=== PATIENT | female | born 1960 | race Caucasian/White ===

== ENCOUNTER → 2017-03-11 | Outpatient (CLI) | payer BC | END | disposition home or self-care (01) | LOC: C.PAPS 09:40 | PROVIDERS: ATTEND Obstetrics & Gynecology | DX: Z01.419 Encounter for gynecological examination (general) (routine) without abnormal findings (principal) ==

== ENCOUNTER 2024-05-21 05:02 | Observation (INO) ==
--- NOTE | 2024-02-08 10:18 | PAT Medication Instructions ---
Medication Instructions Date of Service February 08, 2024 Home Medications dorzolamide 22.3 mg-timolol 6.8 mg/mL eye drops (Cosopt) 1 drp ophthalmic (eye) BID amlodipine 5 mg tablet 5 mg PO HS aspirin 81 mg capsule 81 mg PO HS cholecalciferol (vitamin D3) 125 mcg (5,000 unit) tablet (Vitamin D3) 125 mcg PO HS doxycycline hyclate 50 mg capsule 50 mg PO HS irbesartan 150 mg tablet 150 mg PO HS multivitamin 1 tab PO HS ASK your prescriber and surgeon aspirin 81 mg capsule 81 mg PO HS Take morning of surgery With a small sip of water, OTHERWISE NOTHING TO EAT OR DRINK AFTER MIDNIGHT: dorzolamide 22.3 mg-timolol 6.8 mg/mL eye drops (Cosopt) 1 drp ophthalmic (eye) BID Take evening before surgery dorzolamide 22.3 mg-timolol 6.8 mg/mL eye drops (Cosopt) 1 drp ophthalmic (eye) BID amlodipine 5 mg tablet 5 mg PO HS cholecalciferol (vitamin D3) 125 mcg (5,000 unit) tablet (Vitamin D3) 125 mcg PO HS doxycycline hyclate 50 mg capsule 50 mg PO HS irbesartan 150 mg tablet 150 mg PO HS multivitamin 1 tab PO HS Other Notes If you have any questions please call us at [phone] or [phone] or [phone] or [phone]
--- NOTE | 2024-05-03 10:24 | Anesthesiology Consultation ---
Date of Service May 03, 2024 Assessment & Plan (1) Encounter for pre-operative examination: - Infectious disease screening: Per assessment on 05/03/24- No known recent infectious disease contacts or current infectious disease symptoms. - Outpatient joint assessment: Pt currently scheduled for inpatient pathway. If surgeon requests review for outpatient joint pathway, patient is an acceptable candidate for outpatient joint program from anesthesia standpoint pending PCP visit, surgeon's office assessment that patient is motivated, has good support and completes Same Day Joint Program preop requirements. - Patient acceptable risk for surgery pending recent PCP office visit note (MANINDER, appt 05/04- currently in draft). Chart Review Chart Review: Patient seen in Pre Admission Testing Teaching & Discussion Pre-Anesthesia Teaching/Discussion Notes: Instructed NPO after midnight before surgery,except medications with 15 cc of water. Medication instructions provided according to the PAT guidelines. History Surgery Operation Date: 05/21/24 09:00 Proposed Procedures p Left Total Knee Arthroplasty - Mark Rodriguez, Height/Weight Height: 5 ft 6 in Weight: 96.2 kg Allergies Allergy/AdvReac Type Severity Reaction Status Date / Time adhesive Allergy Severe Hives, Verified 04/27/24 10:15 itchy clarithromycin Allergy Unknown Vertigo, Verified 04/27/24 10:15 N/V ondansetron [From Zofran] Allergy Unknown Per Verified 04/27/24 10:15 records, unknown reaction prednisone Allergy Unknown Nausea Verified 04/27/24 10:15 Medications Home Medications Medication Instructions Recorded Confirmed Last Taken dorzolamide 22.3 mg-timolol 6.8 1 drp ophthalmic (eye) BID 07/02/20 04/27/24 Unknown mg/mL eye drops (Cosopt) amlodipine 5 mg tablet 5 mg PO HS 10/07/22 04/27/24 Unknown cholecalciferol (vitamin D3) 125 125 mcg PO HS 02/06/24 04/27/24 Unknown mcg (5,000 unit) tablet (Vitamin D3) irbesartan 150 mg tablet 150 mg PO HS 02/06/24 04/27/24 Unknown multivitamin 1 tab PO HS 02/06/24 04/27/24 Unknown Entocort EC DIRECTED 05/03/24 Unknown Past Medical History Medical History History of COVID-19 03/2023- treated with Paxlovid, no residual symptoms Hx of pleurisy 2008, no current issues Hypertension Osteoarthritis of left knee 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 No further cha luation necessary." Exercise / Class Metabolic Activity II 4-5 Yardwork/Stairs/Walk up hill (one FS (No CP, no SOB)) Past Family History Family History Other Cancer Coronary heart disease Diabetes Past Surgical History Surgical History H/O dilation and curettage Multiple (R/t miscarriages) H/O sinus surgery Hx of breast surgery Milk ducts surgery Hx of colonoscopy Hx of tooth extraction Age 13, teeth removed for placement of braces Hx of wisdom tooth extraction S/P myringotomy with insertion of tube B/L Past Anesthesia History No Hx of Anesthesia Complications * Mother: Grogginess, nausea post-op History of PONV No Hx of PONV and Hx of Motion Sickness Social History Smoking Status: Never smoker Do You Dip or Chew Tobacco: No Hx Alcohol Use: Yes (very rare) Hx Substance Use: No substance use type: does not use Review of Systems Patient denies chest pain, shortness of breath, dyspnea on exertion, fever, chills, cough, wheezing, palpitations. Physical Exam Vital Signs BP 127/85 P 82 TEMP 97.9 SP02 97%RA RESP 16 Physical Full cervical extension range of motion. Full TMJ range of motion. TMD > 3.5 finger breaths Mallampati Score II Dentition: intact Lungs: clear throughout to auscultation Cardiac: regular rate and rhythm, no murmurs noted Spine: normal Carotid arteries: negative bruit Extremities: no LE edema Lab Results Anesthesia Preop Results Results Anesthesia Widget: WBC 7.91 K/ul (4.8-10.8) 05/03/24 Hgb 13.9 g/dl (12.0-16.0) 05/03/24 Hct 41.1 % (37.0-47.0) 05/03/24 Plt 265 K/uL (130-400) 05/03/24 Na 139 mmol/L (136-145) 05/03/24 K 3.4 mmol/L (3.5-5.1) L 05/03/24 Cl 106 mmol/L (98-107) 05/03/24 CO2 27 mmol/L (21-32) 05/03/24 BUN 14 mg/dl (6-23) 05/03/24 Creat 0.69 mg/dl (0.6-1.2) 05/03/24 Glucose Level 110 mg/dl (70-99(Fasting)) H 05/03/24 PT 10.3 Seconds (9.0-12.0) 05/03/24 PTT 27 Seconds (21-31) 05/03/24 INR 0.9 (0.9-1.1) 05/03/24 Blood Type A Positive 05/03/24 Antibody Screen NEGATIVE 05/03/24 Testing Electrocardiogram Date: 05/03/24 NSR at 81bpm. LAD. Low voltage QRS. Chest X-Ray Date: 05/03/24 FINDINGS: The lungs are clear. Cardiomediastinal silhouette is within normal limits. No acute osseous abnormalities. No pleural effusion or pneumothorax. IMPRESSION: No acute cardiopulmonary findings. Other Testing CT Cardiac calcium score Date: 03/15/24 There is no coronary artery calcification. The Agatston score is 0. Anterior mediastinal soft tissue density may reflect a thymic cyst or similar benign thymic lesion. Thymic neoplasm not excluded. Further assessment with thymic protocol MRI advised. 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 No further evaluation necessary.
[~2024-05-21 05:02] MED LIST: ceFAZolin 2000MG 2,000 MG/15 ML SYR IV SCH
--- NOTE | 2024-05-21 05:54 | History & Physical Bridge Note ---
Date of Service May 21, 2024 History & Physical Bridge Note I have examined the patient, reviewed the History & Physical and in the interval since the performance of the History & Physical I have noted the following changes of clinical significance: no changes noted
[2024-05-21] MEDS: FAMOTIDINE 20 MG TAB PO SCH (05:57)
[2024-05-21] MEDS: GABAPENTIN 600 MG DOSE PO SCH (05:57)
[2024-05-21] MEDS: ACETAMINOPHEN 500 MG TAB PO SCH ×2 (05:57→15:11)
[2024-05-21] MEDS: LR 500ML BOLUS, THEN 15ML/HR IV SCH (05:58)
[2024-05-21] MEDS: LR 60ML/HR IV SCH (05:58)
[2024-05-21] MEDS: SODIUM CHLORIDE 0.9% 1,000 ML IV SCH (05:59)
[2024-05-21] MEDS: dexAMETHasone**PF** 10 MG/ML VIAL IV SCH (06:09)
[2024-05-21] MEDS ORDERED: ROPIVACAINE 0.5% 5 MG/ML 30 ML VIAL ONE (06:21)
[2024-05-21] MEDS ORDERED: MIDAZOLAM HCL 1 MG/ML 2ML VIAL ONE (06:39)
[2024-05-21] MEDS: TRANEXAMIC ACID 1,000 MG **IV Pre-op IV SCH (06:41)
[2024-05-21] MEDS ORDERED: ATROPINE SULFATE 0.1 MG/ML 10ML SYR IV PRN (06:42)
[2024-05-21] MEDS ORDERED: KETOROLAC 30 MG/ML VIAL IV PRN (06:42)
[2024-05-21] MEDS ORDERED: ePHEDrine sulfate 50 MG/ML AMP IV PRN (06:42)
[2024-05-21] MEDS ORDERED: PROMETHAZINE HCL 6.25 MG in SODIUM CHLORIDE 0.9% 50 ML IV PRN (06:42)
[2024-05-21] MEDS ORDERED: HYDROmorphone INJ 1 MG/ML SYRINGE IV PRN (06:42)
[2024-05-21] MEDS ORDERED: PROPOFOL IV EMULSION 10 MG/ML 20 ML VIAL IV ONE ×2 (06:44→07:48)
[2024-05-21] MEDS: ceFAZolin 2000MG 2,000 MG/15 ML SYR IV SCH ×2 (06:59→15:11)
[2024-05-21] MEDS ORDERED: ONDANSETRON INJ 2 MG/ML 2 ML VIAL ONE (07:09)
[2024-05-21] MEDS: ORTHO JOINT ANESTHETIC ONE (07:41)
[2024-05-21] MEDS: ROPIV 0.5% 246mg, Ketorolac 30mg, EPINEPHrine 0.5mg in NSS INFIL SCH (07:55)
[2024-05-21] MEDS: TRANEXAMIC ACID 1,000 MG **IV Intra-op IV SCH (08:12)
--- NOTE | 2024-05-21 08:14 | Operative Report ---
PG Post Operative Report Pre & Post Diagnosis Operation Date: 05/21/24 07:00 Pre-Op Diagnosis: Osteoarthritis of Left Knee Post-Op Diagnosis: Osteoarthritis of Left Knee I identified the patient and participated in the time-out.: Yes Procedure Operation Date: 05/21/24 07:00 Actual Procedures p Left Total Knee Arthroplasty(Left) - Mark Rodriguez DO Surgeon Mark Rodriguez DO Helper Coordinator Sana Pinto PA-C Estimated Blood Loss 30 Findings Consistent with Post-Op Diagnosis Specimens Left femoral tibial bone Description of Procedure Implants used: I used a Anya Persona total knee arthroplasty system with a size 7 PS standard femur, E tibia, 28 oval patella, and a size 14 CPS polyethylene bearing. All components were cemented in place with Biomet cement. Nona arrived [facility] for the above procedure. She was seen in the preoperative holding area and the operative extremity was identified and signed. She was given a preoperative antibiotic, TXA, a spinal anesthetic and an adductor nerve block. She was taken back to the operating room and laid on the table in supine position. She was given basic sedation. The operative knee was then prepped and draped in sterile fashion. A timeout was done, and the patient and the operative extremity was properly identified. A midline incision was made directly over the patella. Dissection was taken down to the extensor mechanism. A medial parapatellar arthrotomy was used. The medial retinaculum was released and the fat pad was mostly excised. The knee was flexed and the ACL, PCL, and meniscus were removed. A drill was sent down the center of the femoral canal followed by an intramedullary tang. Off that tang a distal femoral cutting block was placed. 9 mm was resected off the distal femur at 5 of valgus. A posterior referencing AP sizing guide was then placed on the distal femur. The femur measured to be a size 7. 2 drill holes were placed in 3 of external rotation. A 4-in-1 cutting block was then impacted into place. Anterior, posterior, and chamfer cuts were then made. The proximal tibia was then exposed. An external tibial alignment guide was placed. A tibial cut guide was then anchored in place and the proximal tibia was then resected. The posterior aspect of the knee was then opened up and any additional meniscus fragments and osteophytes were removed. The tibia measured to be a size E. The tibial plate was then placed in the appropriate rotation and the tibia was drilled and punched. Trial components were then placed. I used a size 14 CPS polyethylene insert. The knee was brought through a full range of motion and felt to be stable. The peg holes for the femoral component were then drilled. The patella was then everted and 9 mm was resected off the posterior aspect of the patella. The patella measured to be a size 28 oval. 3 peg holes were then drilled. A trial patella was placed. The knee was once again brought through a full range of motion and felt to be stable. Trial components were then removed. The surrounding soft tissues were injected with 100 cc of an orthopedic pain control cocktail. All components were then cemented into place with Biomet cement. The final polyethylene insert was then snapped into place. Once cement was dry the tourniquet was deflated. Hemostasis was obtained. A dilute betadyne lavage was then done for 3 minutes. The joint was then irrigated with normal saline solution. The medial parapatellar arthrotomy was then closed with #1 Vicryl suture. The skin was closed with 2-0 Vicryl, 3-0V lock suture, and alvin. A soft compressive dressing was placed. She was then transferred to a hospital bed and taken to the postanesthesia care unit in stable condition. She tolerated the procedure well. Sana Pinto PA-C, was present for the entire procedure. He was critical for patient positioning, prepping, draping, retraction exposure, wound closure and application of sterile dressing. I attest to the content of the Intraoperative Record and any orders documented therein. Any exceptions are noted below.
[2024-05-21] MEDS ORDERED: NALOXONE HCL 0.4 MG/1 ML VIAL/CARP IV PRN (08:46)
[2024-05-21] MEDS ORDERED: HYDROmorphone INJ 0.5 MG/0.5 ML SYR IV PRN (08:46)
[2024-05-21] MEDS ORDERED: MAGNESIUM HYDROXIDE SUSP 30 ML UDC PO PRN (08:46)
[2024-05-21] MEDS ORDERED: diphenhydrAMINE Capsule 25 MG CAP PO PRN (08:46)
[2024-05-21] MEDS ORDERED: METOCLOPRAMIDE HCL INJ 5 MG/ML 2 ML VIAL IV PRN (08:46)
[2024-05-21] MEDS ORDERED: bisacodyL 10 MG SUPP PR PRN (08:46)
--- OUTSIDE RECORDS SUMMARY | 2024-05-21 08:46 | External Medical Summary | Summary of Care ---
Author Name Unknown Organization [facility] Address [address] [place] [address] Phone [phone] Care Team Providers Care Veterinary Technician Name Role Phone Nathaly Armstrong MD Primary Care Provider Reason for Visit * Reason Onset Date Comments Advice 05/16/2024 Encounter Details Date Type Department Care Team (Late st Contact Info) Description 05/16/2024 Telephone Family Practice [facility] [address] [facility] [place] [address] Tasha Echeverria MD [address] [place] [address] Advice Allergies Active Allergy Reactions Criticality Noted Date Comments Adhesive Tape Rash 11/23/2013 Clarithromycin 09/25/1999 emesis Dust Mite Extract Allergy test positive 014 Prednisone Nausea/vomiting 07/06/2013 documented as of this encounter (statuses as of 05/17/2024) Medications dorzolamide-kojo olol (COSOPT OCUMETER PLUS) 2.23-0.68% ophthalmic solution 7 Active budesonide ER (ENTOCORT EC) 3 MG CPEP Take 0.6 mg by mouth. Dissolves in 4ounces sterile water, then uses netipot to rinse nasal cavities. Specially compounded by pharmacy in [place]. 3 times a week Active Biotin 28453 MCG Oral Tablet Take by mouth. Active Vitamin D3 125 MCG (5000 UT) Oral Capsule Take 1 Capsule by mouth in the morning. Active Centrum Silver 50+Women Oral Tablet Take by mouth. Activ e Irbesartan 150 MG Oral Tablet (Avapro)Indicat ions:HTN, goal below 130/80 TAKE 1 TABLET DAILY 90 Tablet 3 4 Active amLODIPine Besylate 5 MG Oral Tablet (Norvasc)Indica tions:HTN, goal below 130/80 Take 1 Tablet by mouth daily. In the morning. 90 Tablet 3 4 Active documented as of this encounter (statuses as of 05/17/2024) Active Problems Problem Noted Date Diagnosed Date HTN, goal below 130/80 04/16/2022 Increased pressure in the eye, bilateral 021 Overview (04/10/2021): FMHx glaucoma, follows with DR Narayan. Family history of malignant melanoma 02/09/2018 Chronic sinusitis 04/13/2017 documented as of this encounter (statuses as of 05/17/2024) Resolved Problems Problem Noted Date Diagnosed Date Resolved Date Pain in thumb joint with movement 07/12/2014 04/13/2017 Abnormal mammogram 02/15/2014 7 General medical exam 07/06/2013 018 Screening for cardiovascular condition 07/06/2013 06/28/2017 Screening for diabetes mellitus 07/06/2013 06/28/2017 Acute nasopharyngitis 01/02/20122013 Sinus disease 01/02/2012 04/13/2017 Hearing loss 11/18/2011 07/06/2013 Muscle strain 11/18/2011 07/06/2013 Impacted cerumen 11/18/2011 07/06/2013 Cough 10/22/2011 07/06/2013 Malignant neoplasm of female breast 11/19/2004 11/19/2004 Overview (11/19/2004): rt ductal carcinoma Migraine without aura 11/19/20042014 documented as of this encounter (statuses as of 05/17/2024) Immunizations Name Administration Dates Next Due COVID-19 mRNA, LNP-s, No Pre serve, 2-Dose Series (Moderna) 03/09/2024,07/28/2020,06/24/2020 COVID-19, MRNA-LNP, PF, 50 M CG/0.5 mL, 12 YRS AND ABOVE, IM (MODERNA-Spikevax) 03/13/2023 COVID-19, mRNA, LNP-s, PF, B ooster, 100mcg/0.5mg (Moderna) 09/15/2021,04/03/2021 Covid-19, Mrna, Lnp-s, Pf, B ivalent, 50 Mcg, IM, 12 yrs and above (Moderna) 02/25/2022 Hepatitis B, 20+ yrs 01/11/1999,08/11/18 95,08/27/1993,1992,02/25/1993 MMR - Measles/Mumps/Rubella Vaccine 07/12/2014 Seasonal Influenza Vac., MDV , IM, 0.5 mL (Fluzone) 03/27/2015,04/27/2014,04/13/2013 Seasonal Influenza Virus Vac cine, Unspecified Formulation 03/21/2024,03/09/2022,04/17/2020 Seasonal Influenza, Quadriva lent, No Preserve, IM 03/04/2021,03/16/2017,03/25/2016 TDAP (age 10 and older)(Boostrix) 04/13/2017,01/2006 TDAP, Age 7 and older, IM (Adacel) 12/18/2005 Zoster Vaccine Recombinant (Shingrix) 06/19/2021 ,04/10/2021 documented as of this encounter Social History Tobacco Use Types Packs/Day Years Used Date Smoking Tobacco: Never Smokeless Tobacco: Never Alcohol Use Standard Drinks/Week Comments Yes 0 (1 standard drink = 0.6 oz pur e alcohol) rare PHQ-2 Answer Date Recorded PHQ Adult Total Score 0 04/16/2022 Hunger Vital Sign Answer Date Recorded Worried About Running Out of Food in the Last Ye ar Not on file 04/11/2022 Within the past 12 months, t he food you bought just didn't last and you didn't have money to get more. Never true 04/11/2022 Utilities Answer Date Recorded Do you have trouble paying y our heating, water, or electric bill? (Adult - for ages 18 years and over) Not on file 11/29/2023 Is your family able to pay t he heat, water, or electric bill? (Household - for ages 0-17 years) Not on file 11/29/2023 Does your family have access to good internet? (Household - for ages 0-17 years) Not on file 11/29/2023 Social Connections Answer Date Recorded How often do you feel lonely or isolated from those around you? 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 Pt is scheduled for surgery on Tuesday05/21/24. Anesthesiologist would marcie to review the OV notes before Tuesday. documented in this encounter Plan of Treatment Upcoming Encounters Date Type Department Care Team (Late st Contact Info) Description 06/14/2024 11:00 AM EST Office Visit Dermatology [facility] [address] [place] [address] Kashmir Rand MD [address] [place] [address] 10/08/2024 8:20 AM EDT Office Visit Ophthalmology, [facility] [address] [facility] [place] [address] Colt Mazariegos, DO [address] [place] [address] 05/16/2025 8:15 AM EST Imaging Radiology [facility] [address]st [facility] [address] [facility] [place] [address] Scheduled Procedures Name Priority Associated Diagnoses Date/Ti me COLONOSCOPY FLEXIBLE PROXIMA L DIAGNOSTIC Recall Family history of colonic polyps Family history of colon cancer Health Maintenance Due Date Last Done Comments HIV Screening 02/01/1976 Hepatitis C Screening 1979 HPV/Co-Test 1991 Cologuard 2006 Fecal Occult Blood Test 2006 Sigmoidoscopy 2006 Depression Screening 04/16/2023 04/16/2022 GFR 03/31/2024 03/31/2023, 020 08/2022, 04/10/2021 Colonoscopy 04/26/2024 04/26/2019, 04/13, 11/23/2013, Additional history exists Colorectal Cancer Screening 04/26/2024 COVID-19 Vaccine ( season) 2024 03/09/2024, 03/13/2023, 02/25/2022, Additional history exists Mammogram 05/04/2025 05/04/2024, 08/2022, 04/09/2022, Additional history exists Albumin/Creatinine Ratio 07/16/2025 07/16/2022 Lipid Panel 04/10/2026 04/10/2021, 020 10/2015, 07/06/2013 Cervical Cancer Screening 11/03/2026 Pap Smear 11/03/2026 11/04/2023, 09/12, 04/27/2018, Additional history exists DTap/Tdap Vaccines (4 - Td or Tdap) 04/13/2027 04/13/2017, 12/18/2005, 12/18/2005 Hepatitis B Vaccine Completed 01/11/1999, 08/11/1994, 08/27/1993, Additional history exists RETIRED - COLONOSCOPY-EVERY 5 YRS AGES 18-100 Discontinued 04/26/2019, 04/26/2019, 11/23/2013, Additional history exists Zoster Vaccines Completed 06/19/2021, 04/10/2021 Influenza Vaccine (FLU shot) Completed 03/21/2024, 03/09/2022, 03/04/2021, Additional history exists HPV (Gardasil) Vaccine Aged Out No lo nger eligible based on patient's age to complete this topic MENINGOCOCCAL (MENACTRA/MENVEO) Aged Out No longer eligible based on patient's age to complete this topic Pneumococcal Vaccine: Pediatrics (0 to 5 Years) and At-Risk Patients (6 to 64 Years) Aged Out No longer eligible based on patient's age to complete this topic documented as of this encounter Medical Devices Not on filedocumented as of this encounter Care Teams Veterinary Technician Relationship Specialty Start Date End Date Nathaly Armstrong MD [address] [facility] [place] [address] PCP - General Internal Medicine 04/10/21 documented as of this encounter
--- OUTSIDE RECORDS SUMMARY | 2024-05-21 08:46 | External Medical Summary | Summary of Care ---
Author Name Unknown Organization [facility] Address [address] [place] [address] Phone [phone] Care Team Providers Care Pit Hand Name Role Phone Nathaly Armstrong MD Primary Care Provider Reason for Visit * Reason Onset Date Comments Advice 05/16/2024 Encounter Details Date Type Department Care Team (Late st Contact Info) Description 05/16/2024 Telephone Family Practice [facility] [address] [place] [address] Tasha Echeverria MD [address] [facility] [place] [address] Advice Allergies Active Allergy Reactions Criticality Noted Date Comments Adhesive Tape Rash 11/23/2013 Clarithromycin 09/25/1999 emesis Dust Mite Extract Allergy test positive 014 Prednisone Nausea/vomiting 07/06/2013 documented as of this encounter (statuses as of 05/16/2024) Medications dorzolamide-kojo olol (COSOPT OCUMETER PLUS) 2.23-0.68% ophthalmic solution 7 Active budesonide ER (ENTOCORT EC) 3 MG CPEP Take 0.6 mg by mouth. Dissolves in 4ounces sterile water, then uses netipot to rinse nasal cavities. Specially compounded by pharmacy in [place]. 3 times a week Active Biotin 05366 MCG Oral Tablet Take by mouth. Active [...] as of this encounter (statuses as of 05/16/2024) Active Problems Problem Noted Date Diagnosed Date HTN, goal below 130/80 04/16/2022 Increased pressure in the eye, bilateral 021 Overview (04/10/2021): FMHx glaucoma, follows with DR Narayan. 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 Pt is scheduled for surgery on Tuesday05/21/24. Anesthesiologist would marcie to review the OV notes before Tuesday. documented in this encounter Plan of Treatment Upcoming Encounters Date Type Department Care Team (Late st Contact Info) Description 06/14/2024 11:00 AM EST Office Visit Dermatology [facility] [address] [place] [address] [address] Kashmir Rand MD [address] [place] [address] [address] 10/08/2024 8:20 AM EDT Office Visit Ophthalmology, [facility] [address] [facility] [place] [address] Colt Mazariegos, DO [address] [place] [address] 05/16/2025 8:15 AM EST Imaging Radiology [facility] [address]st [facility] [address] [facility] [place] [address] Scheduled Procedures Name Priority Associated Diagnoses Date/Ti [...] filedocumented as of this encounter Care Teams Pit Hand Relationship Specialty Start Date End Date Nathaly Armstrong MD [address] [facility] [place] [address] PCP - General Internal Medicine 04/10/21 documented as of this encounter
--- OUTSIDE RECORDS SUMMARY | 2024-05-21 08:46 | External Medical Summary | Summary of Care ---
Author Name Unknown Organization [facility] Address [address] [place] [address] Phone [phone] Care Team Providers Care Fitter/Welder Name Role Phone Nathaly Armstrong MD Primary Care Provider Reason for Visit * Reason Onset Date Comments Advice 05/16/2024 Encounter Details Date Type Department Care Team (Late st Contact Info) Description 05/16/2024 Telephone Family Practice [facility] 200 [facility] [place] [address] Tasha Echeverria MD 200 [facility] [place] [address] Advice Allergies Active Allergy Reactions Criticality Noted [...] nasal cavities. Specially compounded by pharmacy in [place]. 3 times a week Active Biotin 14768 MCG Oral Tablet Take by mouth. 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 Pt is scheduled for surgery on Tuesday05/21/24. Anesthesiologist would marcie to review the OV notes before Tuesday. documented in this encounter Plan of Treatment Upcoming Encounters Date Type Department Care Team (Late st Contact Info) Description 06/14/2024 11:00 AM EST Office Visit Dermatology [facility] [address] [place] [address] Kashmir Rand MD 200 [facility] [place] [address] 10/08/2024 8:20 AM EDT Office Visit Ophthalmology, [facility] 132 [facility] [place] [address] Colt Mazariegos, DO 16 [place] [address] 05/16/2025 8:15 AM EST Imaging Radiology [facility] 1st [facility] [address] [facility] [place] [address] Scheduled Procedures Name Priority Associated Diagnoses Date/Ti me COLONOSCOPY FLEXIBLE PROXIMA L DIAGNOSTIC Recall Family history of colonic polyps Family history of colon cancer Health Maintenance Due Date Last Done Comments HIV Screening 02/01/1976 Hepatitis C Screening 1979 HPV/Co-Test 1991 Cologuard 2006 Fecal Occult Blood Test 2006 Sigmoidoscopy 2006 Depression Screening 04/16/2023 04/16/2022 GFR 03/31/2024 03/31/2023, 08/2022, 04/10/2021 Colonoscopy 04/26/2024 04/26/2019, 04/13, 11/23/2013, Additional history exists Colorectal Cancer Screening 04/26/2024 COVID-19 Vaccine ( season) 2024 03/09/2024, 03/13/2023, 02/25/2022, Additional history exists Mammogram 05/04/2025 05/04/2024, 08/2022, 04/09/2022, Additional history exists Albumin/Creatinine Ratio 07/16/2025 07/16/2022 Lipid Panel 04/10/2026 04/10/2021, 10/2015, 07/06/2013 Cervical Cancer Screening 11/03/2026 Pap Smear 11/03/2026 11/04/2023, 0412/2022, 04/27/2018, Additional history exists DTap/Tdap Vaccines (4 [...] filedocumented as of this encounter Care Teams Fitter/Welder Relationship Specialty Start Date End Date Nathaly Armstrong MD [address] [place] [address] PCP - General Internal Medicine 04/10/21 documented as of this encounter
--- OUTSIDE RECORDS SUMMARY | 2024-05-21 08:46 | External Medical Summary | Summary of Care ---
Author Name Unknown Organization [facility] Address [address] [place] [address] Phone [phone] Care Team Providers Care Crepe Sole Scourer Name Role Phone Nathaly Armstrong MD Primary Care Provider Reason for Visit * Reason Comments Follow Up Encounter Details Date Type Department Care Team (Late st Contact Info) Description 05/04/2024 1:40 PM EST Office Visit Family Practice [facility] 200 [facility] [place] [address] Tasha Echeverria MD 200 [facility] [place] [address] HTN, goal below 130/80*; Dizziness; Vasovagal syncope Allergies Active Allergy Reactions Criticality Noted Date Comments Adhesive Tape Rash 11/23/2013 Clarithromycin 09/25/1999 emesis Dust Mite Extract Allergy test positive 014 Prednisone Nausea/vomiting 07/06/2013 documented as of this encounter (statuses as of 05/16/2024) Medications dorzolamide-ti molol (COSOPT OCUMETER PLUS) 2.23-0.68% ophthalmic solution 03/06/20 17 Active budesonide ER (ENTOCORT EC) 3 MG CPEP Take 0.6 mg by mouth. Dissolves in 4ounces sterile water, then uses netipot to rinse nasal cavities. Specially compounded by pharmacy in [place]. 3 times a week Active Biotin 59515 MCG Oral Tablet Take by mouth. Activ e Vitamin D3 125 MCG (5000 UT) Oral Capsule Take 1 Capsule by mouth in the morning. Active Centrum Silver 50+Women Oral Tablet Take by mouth. Activ e Irbesartan 150 MG Oral Tablet (Avapro)Indica tions:HTN, goal below 130/80 TAKE 1 TABLET DAILY 90 Tablet 3 02/11/20 24 Active amLODIPine Besylate 5 MG Oral Tablet (Norvasc)Indic ations:HTN, goal below 130/80 Take 1 Tablet by mouth daily. In the morning. 90 Tablet 3 02/11/20 24 Active doxycycline hyclate (VIBRAMYCIN) 50 MG Capsule Take 1 Capsule by mouth every other day. 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 Patient is unaccompanied. The following issues were addressed today: History of Present Illness The patient, with a history of hypertension, presents with recurrent episodes of dizziness and a recent syncopal episode. She describes the dizziness as a 'rolling' sensation. When asked further about the syncopal episode, she states she felt dizzy and "went to her knees" but does not think that she actually lost consciousness. She has been monitoring home blood pressure readings. The patient reports both high and low readings during these episodes of dizziness. The patient has not experienced any further dizziness since reintroducing sodium and caffeine into her diet, which she had previously been strictly limiting. The patient also reports a history of hypoglycemia, and has been trying to eat breakfast regularly to manage this. She denies any chest pain or palpitations. She has been evaluated with an EKG, whichwas normal. Review of Systems: See HPI Objective BP 140/90 | Pulse 89 | Temp 98.4 F (36.9 C) (Tympanic) | Resp 18 | LMP 04/03/2001 | SpO2 96% Wt Readings from Last 3 Encounters: 03/22/24 210 lb (95.3 kg) 03/05/24 210 lb 1.3 oz (95.3 kg) 11/17/23 207 lb 4 oz (94 kg) BP Readings from Last 3 Encounters: 05/04/24 140/90 03/22/24 138/82 03/05/24 150/90 General: Well-appearing, no acute distress Cardiovascular: Regular rate and rhythm, no murmur Respiratory: Good respiratory effort, breath sounds equal and clear to auscultation bilaterally Extremities: No edema Neurological: Alert and oriented, no focal deficits noted Psychiatric: Appropriate mood and affect Assessment and Plan 1. HTN, goal below 130/80 Labile blood pressures, now more stable since she is not strictly limiting caffeine or sodium. She is on amlodipine 5mg and irbesartan 150mg daily. Continue to monitor BP at home. 2. Dizziness 3. Vasovagal syncope Discussed episode likely vasovagal or related to low blood pressure. Discussed low probability of cardiac causes but potential need for case monitor if symptoms recur. Return if symptoms worsen or fail to improve. This note was electronically signed by Tasha Echeverria MD Text in this note was generated using an ambient documentation service. I discussed the use of a device to record and summarize our discussion today. All persons present during the encounter consented to its use. documented in this encounter Nursing Notes * Cathie Matson LPN - 05/04/2024 1:27 PM EST Nona Arita presents for recheck to discuss dizziness and cyst. Medications & HM reviewed. documented in this encounter Plan of Treatment Upcoming Encounters Date Type Department Care Team (Late st Contact Info) Description 06/14/2024 11:00 AM EST Office Visit Dermatology [facility] 200 [facility] [place] [address] Kashmir Rand MD [address] [facility] [place] [address] 10/08/2024 8:20 AM EDT Office Visit Ophthalmology, [facility] 132 [place] [address] Colt Mazariegos, DO 16 [place] [address] 05/16/2025 8:15 AM EST Imaging Radiology [facility] 1st [facility] 132 [place] [address] Scheduled Procedures Name Priority Associated Diagnoses Date/Ti [...] Cancer Screening 11/03/2026 Pap Smear 11/03/2026 11/04/2023, 04/2 12/2022, 04/27/2018, Additional history exists DTap/Tdap Vaccines (4 [...] Not on filedocumented as of this encounter Visit Diagnoses Diagnosis HTN, goal below 130/80- Primary Unspecified essential hypertension Dizziness Dizziness and giddiness Vasovagal syncope Syncope and collapse Screening mammogram for breast cancer documented in this encounter Care Teams Crepe Sole Scourer Relationship Specialty Start Date End Date Nathaly Armstrong MD [address] [place] [address] PCP - General Internal Medicine 04/10/21 documented as of this encounter
--- NOTE | 2024-05-21 09:28 | XRay Report ---
XR knee LT 1 or 2V routine HISTORY: 64 years-old Female Surgical Post Op left knee arthroplasty COMPARISON: Knee radiographs 01/03/2021 TECHNIQUE: 2 views of the left knee FINDINGS: Total joint arthroplasty with patellar resurfacing. Anterior midline skin alvin with expected posto perative soft tissue swelling and deep tissue air. No acute fracture or unexpected opaque foreign bod ies. IMPRESSION: Total joint arthroplasty with expected postop changes. ACT 112: Negative or not required by law. The above report was generated using voice recognition software. It may contain grammatical, syntax o r spelling errors. Electronically signed by: Shaquille Rooney M.D. 05/21/2024 9:26 AM
[2024-05-21] MEDS: KETOROLAC TROMETHAMINE 15 MG/ML VIAL IV SCH (11:51)
[2024-05-21] MEDS: DOCUSATE SODIUM 100 MG CAP PO SCH (11:52)
[2024-05-21] MEDS: MULTIVITAMIN TAB PO SCH (11:52)
[2024-05-21] MEDS: DORZOLAMIDE/TIMOLOL 22.3/6.8MG/ML 10 ML BTL OP SCH (11:55)
[2024-05-21] MEDS: oxyCODONE HCL IR 5 MG TAB (IMMEDIATE RELEASE) PO PRN (12:56)
--- NOTE | 2024-05-21 14:48 | Anesthesiology Progress Note ---
Date of Service May 21, 2024 Anesthesia Post Procedure Vital Signs Vital Signs: Temp Pulse Pulse Pulse Resp BP Pulse Ox 05/21/24 12:50 36.5 C 73 16 137/82 96 05/21/24 11:50 36.3 C L 73 16 125/81 97 05/21/24 10:50 36.8 C 77 16 126/83 99 05/21/24 10:20 36.4 C L 65 16 125/85 100 05/21/24 09:50 36.4 C L 70 14 123/78 96 05/21/24 09:40 58 L 12 118/66 97 05/21/24 09:30 64 11 L 137/72 97 05/21/24 09:20 36.4 C L 62 11 L 123/70 97 05/21/24 09:10 85 17 116/58 L 98 05/21/24 09:00 71 15 116/58 L 99 05/21/24 08:50 36 C L 69 15 100/59 L 99 05/21/24 05:38 36.7 C 82 18 126/75 96 O2 Del Method O2 Flow Rate 05/21/24 12:50 Room Air 05/21/24 11:50 Room Air 05/21/24 10:50 Room Air 05/21/24 10:20 Room Air 05/21/24 09:50 Room Air 05/21/24 09:40 Room Air 05/21/24 09:30 Room Air 05/21/24 09:20 Room Air 05/21/24 09:10 Room Air 05/21/24 09:00 Room Air 05/21/24 08:50 Oxymask 10 05/21/24 05:38 Room Air Transfer of Care Handoff Completed per policy Notes Mental Status: alert / awake / arousable Patient Amnestic to Procedure: Yes Nausea / Vomiting: adequately controlled Pain: adequately controlled Airway Patency, RR, SpO2: stable & adequate BP & HR: stable & adequate Hydration State: stable & adequate Neuraxial Anesthesia: was administered and sensory block is resolving Anesthetic Complications: no major complications apparent
[2024-05-21] MEDS ORDERED: NON-FORMULARY MEDICATION (Multivitamin Tablet) PO SCH (21:00)
[2024-05-21] MEDS: CHOLECALCIFEROL 125 MCG (5,000 UNITS) TAB PO SCH (21:13)
[2024-05-21] MEDS: amLODIPine BESYLATE 5 MG TAB PO SCH (21:13)
[2024-05-21] MEDS: SENNA 8.6 MG TAB PO SCH (21:13)
[2024-05-21] MEDS: LOSARTAN POTASSIUM 50 MG TAB PO SCH (21:13)
[2024-05-22] MEDS: HYDROmorphone INJ 1 MG/ML SYRINGE IV PRN (06:00)
--- NOTE | 2024-05-22 06:46 | Orthopedic Progress Note ---
Date of Service May 22, 2024 Assessment & Plan (1) Status post left knee replacement: Overall she is doing fairly well. She is not having too much pain in the left knee. She will be seen by physical therapy today for ambulation and range of motion exercises. The nursing staff can change her dressing after physical therapy. She is on aspirin for DVT prophylaxis. She can be discharged home later today. She will follow-up with orthopedics in 2 weeks. Rachna Castellano was seen and examined at bedside this morning. Overall she is doing fairly well. She is having some spasms in her knee and a little bit of posterior knee pain. She was able to get a little bit of sleep last night. Has no other complaints.. Review of Systems All systems reviewed & are unremarkable except as noted in HPI & below. Physical Exam On physical exam of the left knee, the dressing is clean and dry. Her leg is out full extension. She has active dorsiflexion plantarflexion of her left ankle.. Results & Data Results & Data Laboratory Results . Diagnostic Findings Postoperative x-rays of the left knee show the prosthesis to be in anatomic alignment without any evidence of fracture complication, or loosening.. PG Care Time/CCT Total # of Minutes Spent Total Time Spent with Patient: Total time spent is greater than 50% in coordination of care (as documented) at patient's floor/unit and/or counseling patient: Coding Level of Care Code 25211 Post Operative Follow-Up Diagnoses Status post left knee replacement Z96.652
--- NOTE | 2024-05-22 06:47 | Discharge Summary ---
Date of Service May 22, 2024 Principal Diagnosis Same as "Discharge Diagnosis" noted below under Discharge Instructions. Discharge Exam On physical exam of the left knee, the dressing is clean and dry. Her leg is out full extension. She has active dorsiflexion plantarflexion of her left ankle.. Discharge Data Procedures Performed Operation Date: 05/21/24 07:00 Actual Procedures p Left Total Knee Arthroplasty(Left) - Mark Rodriguez DO Ordered Studies 05/21/24 05:00 US - OR guided needle placemen Routine Hospital Course (1) Status post left knee replacement: On May 21, 2024 Nona arrived at [facility] and underwent a left knee replacement without complication. She had a spinal anesthetic. Postoperatively she was started on aspirin for DVT prophylaxis and transferred to the general orthopedic floors. Her hospital course was uneventful. On postop day #1, her vital signs were stable and her pain was well-controlled. She was able to participate well with physical therapy doing ambulation and range of motion exercises. She was then discharged to home. She will follow with orthopedics in 2 weeks. PG Care Time/CCT Total # of Minutes Spent Total Time Spent with Patient: Total time spent is greater than 50% in coordination of care (as documented) at patient's floor/unit and/or counseling patient: Discharge Plan Discharge Items Patient Disposition: Home - Self-Care Reason For Visit: Degenerative Joint Disease Left Knee Discharge Diagnosis: Left knee replacement Activity: Per Instructions section Non-emergency contact: Surgeon Call non-emergency contact if: your wound has increased redness and your wound has increased drainage Follow-up/Referrals: Nathaly Armstrong MD [Primary Care Provider] - Diet: Regular Addtl Attending Provider Instructions: Activity and Therapy Recommendations: * If you are using [facility] then therapy will be provided at your home until they feel you have accomplished all of your goals. * If you are using [facility] then Physical Therapy will be provided until they feel you are ready to start Outpatient Physical Therapy. * If you are not using home therapy then Outpatient Physical Therapy should start about 3-5 days from your day of surgery. Therapy will last about 6-10 weeks * It is important not to put a pillow under your knee when you are relaxing or sleeping. It is just as important to make sure you are getting your knee perfectly straight as it is to regain your knee bend. * You were shown a series of exercises in the hospital. Do these exercises three times each day including the exercises you were shown in physical therapy. * Get up and walk several times each day. For the first four weeks, try not to stand or walk for more than one hour at a time. If you do stand or walk for more than one hour, you will not hurt anything, but your leg will likely swell. * As you feel comfortable, you may change from the walker or crutches to a cane and then to independent walking. Medications: * Narcotic You will likely be sent home from the hospital with a prescription for the narcotic pain medication that worked best throughout your stay. * Cefadroxil -take the antibiotic twice a day for 10 days to help prevent infection. * Aspirin Most patients will be required to take Aspirin 81mg twice a day for 6 weeks after surgery. This is obtained [id number] and a prescription is not necessary. * Other medications may be prescribed for specific circumstances. If you have any questions, please call the office at . * Resume previous home medications unless otherwise instructed TEDs/Elastic Stockings: The white elastic stockings help limit swelling and prevent blood clots from forming in your legs.~ The more you wear them, the more they work. Wear them for six weeks. Dressing Care: The dressing can be changed after physical therapy on postop day #1. Daily dry dressing changes for a few days, especially if the incision is still draining some. If the incision is not draining then you may leave the alvin open to air. If there is a little bit of drainage or if the alvin are getting stuck on your clothing then cover the incision with a dry dressing. The alvin will be removed at your 2 week follow-up appointment. Showering: You may shower 5 days from the day of surgery as long as the incision is no longer draining. You may shower with the alvin exposed. Let soapy water run over the alvin and pat them dry. Do not scrub or soak the incision. Diet: You may resume your previous diet. Things To Watch For: * Drainage from the incision site that occurs more than one week after your surgery. * Increased redness at the incision site. * Fever above 102 degrees Fahrenheit. * Unusual chest pain or shortness of breath. * Call [facility] at with any of the above problems Follow-Up Visit: Follow-up with Dr. Rodriguez's office 2-3 weeks after your day of surgery. We will remove your alvin and answer any questions. If you have any additional questions or concerns, Dr Rodriguez is usually in the office at the same time and will be available An appointment was probably scheduled when you signed-up for surgery in the office. If you have any questions call Office Instructions: More detailed instructions as well as Frequently Asked Questions were provided in a folder by our office when you signed-up for surgery. Please review these instructions when you get home. If you have any further questions or concerns, please feel free to call the office at [phone] Pending Studies at Discharge: No Stand-Alone Forms: My [facility], Smoking Cessation Medications and DC Order Prescriptions: New oxycodone 5 mg Tablet 5 mg PO Q4H PRN (Reason: pain) Qty: 30 0RF cefadroxil 500 mg capsule 500 mg PO BID 10 Days Qty: 20 0RF aspirin 81 mg Tablet,Delayed Release (Dr/Ec) 81 mg PO BID 42 Days Qty: 84 0RF Continued dorzolamide-timolol [Cosopt] 22.3-6.8 mg/mL drops 1 drp ophthalmic (eye) BID amlodipine 5 mg tablet 5 mg PO HS multivitamin Tablet 1 tab PO HS irbesartan 150 mg tablet 150 mg PO HS cholecalciferol (vitamin D3) [Vitamin D3] 125 mcg (5,000 unit) Tablet 125 mcg PO HS Entocort EC DIRECTED Rx Instructions: Take 0.6 mg by mouth every evening. Dissolves in 4ounces sterile water, then uses netipot to rinse nasal cavities. Discharge Orders: Discharge Order (Routine); Ordered 05/22/24 Ordered By: Mark Rodriguez Admission Data Admit Date/Time: 05/21/24 08:47 Attending Provider: Mark Rodriguez Admit Provider: Mark Rodriguez Primary Care Provider: Nathaly Armstrong
[2024-05-22 07:05] VITALS: BP 116/75; PULSE 81; RESP 18; TEMP 98.2; O2SAT 96
[2024-05-22] MEDS: ASPIRIN 81 MG ECTAB PO SCH (08:52)
--- OUTSIDE RECORDS SUMMARY | 2024-05-22 21:25 | External Medical Summary | Summary of Care ---
Author Name Unknown Organization [facility] Address [address] [place] [address] Phone [phone] Care Team Providers Care Information Resource Consultant Name Role Phone Nathaly Armstrong MD Primary Care Provider Reason for Visit * Reason Onset Date Comments Medication Refill 05/19/2024 Encounter Details Date Type Department Care Team (Late st Contact Info) Description 05/19/2024 Refill Family Practice [facility] [address] [place] [address] Nathaly Armstrong MD [address] [place] [address] HTN, goal below 130/80 Allergies Active Allergy Reactions Criticality Noted Date Comments Adhesive Tape Rash 11/23/2013 Clarithromycin 09/25/1999 emesis Dust Mite Extract Allergy test positive 014 Prednisone Nausea/vomiting 07/06/2013 documented as of this encounter (statuses as of 05/21/2024) Medications dorzolamide-kojo olol (COSOPT OCUMETER PLUS) 2.23-0.68% ophthalmic solution 7 Active budesonide ER (ENTOCORT EC) 3 MG CPEP Take 0.6 mg by mouth. Dissolves in 4ounces sterile water, then uses netipot to rinse nasal cavities. Specially compounded by pharmacy in [place]. 3 times a week Active Biotin 63139 MCG Oral Tablet Take by mouth. Active [...] as of this encounter (statuses as of 05/21/2024) Active Problems Problem Noted Date Diagnosed Date HTN, goal below 130/80 04/16/2022 Increased pressure in the eye, bilateral 021 Overview (04/10/2021): FMHx glaucoma, follows with DR Narayan. 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 n file documented as of this encounter Miscellaneous Notes * Telephone Encounter - Ella Means RPh - 05/21/2024 10:30 AM ESTRefused Prescriptions: Disp Refills Irbesartan 150 MG Oral Tablet (Avapro) 90 Tab*3 Sig: Take 1 Tablet by mouth in the morning.Refused By: ELLA MEANS for Refusal: Too soon documented in this encounter Plan of Treatment Upcoming Encounters Date Type Department Care Team (Late st Contact Info) Description 06/14/2024 11:00 AM EST Office Visit Dermatology [facility] [address] [place] [address] Kashmir Rand MD [address] [place] [address] 10/08/2024 8:20 AM EDT Office Visit Ophthalmology, [facility] 132 [facility] [place] [address] Colt Mazariegos, DO 16 [facility] [place] [address] 05/16/2025 8:15 AM EST [facility] [address] [place] [address] Scheduled Procedures Name Priority Associated Diagnoses Date/Ti me COLONOSCOPY FLEXIBLE PROXIMA L DIAGNOSTIC Recall Family history of colonic polyps Family history of colon cancer Health Maintenance Due Date Last Done Comments HIV Screening 02/01/1976 Hepatitis C Screening 1979 HPV/Co-Test 1991 Cologuard 2006 Fecal Occult Blood Test 2006 Sigmoidoscopy 2006 Depression Screening 04/16/2023 04/16/2022 GFR 03/31/2024 03/31/2023, 0 08/2022, 04/10/2021 Colonoscopy 04/26/2024 04/26/2019, 04/13, 11/23/2013, [...] encounter Visit Diagnoses Diagnosis HTN, goal below 130/80 Unspecified essential hypertension Screening mammogram for breast cancer documented in this encounter Care Teams Information Resource Consultant Relationship Specialty Start Date End Date Nathaly Armstrong MD [address] [facility] [place] [address] PCP - General Internal Medicine 04/10/21 documented as of this encounter
== END 2024-05-22 12:34 | disposition home or self-care (01) ==
LOC: 3E 05:02 → ASU 05:02